=== PATIENT | male | born 1950 | race Caucasian/White ===

== ENCOUNTER 2018-11-20 19:18 | Emergency (ER) | payer SELFPAY ==
[~2018-11-20] VITALS: Ht 165.1 cm; Wt 68.0 kg
[2018-11-20 19:47] VITALS: Ht 165.1 cm; Wt 68.0 kg
[2018-11-21 00:32] VITALS: BP 109/79
== END 2018-11-21 00:32 | disposition home or self-care (01) ==
LOC: ED 19:18
DX: M16.7 Other unilateral secondary osteoarthritis of hip (principal); E11.9 Type 2 diabetes mellitus without complications; Z98.890 Other specified postprocedural states
CPT/HCPCS: 82962; J2270; Q0162